=== PATIENT | male | born 1940 | race Caucasian/White ===

== ENCOUNTER 2018-02-03 07:36 | Day surgery (SDC) | payer MEDICARE ==
[2018-02-01 09:55] VITALS: BMI 33.0
[~2018-02-03 07:36] MED LIST: LACTATED RINGERS 1,000 ML IV SCH; LIDOCAINE 1% 20 ML VIAL (10MG/ML) FOR IV START INTRADERMA PRN
[2018-02-03 07:59] VITALS: RESP 18; TEMP 98
[2018-02-03] MEDS ORDERED: LACTATED RINGERS 1,000 ML IV ONE (08:00)
[2018-02-03 08:07] LABS: Glucose,Whole Blood 161 mg/dL (75-99)
[2018-02-03] MEDS ORDERED: LIDOCAINE 1% INJ 10MG/ML (20 ML MDV) ONE (08:35)
[2018-02-03] MEDS ORDERED: PROPOFOL 10 MG/ML 20 ML VIAL IV ONE (08:35)
--- NOTE | 2018-02-03 08:58 | P.PCN ---
Date of Procedure: 02/03/18 Procedure(s) Performed: BRIEF HISTORY: Patient is a 77-year-old pleasant white male, scheduled for an elective colonoscopy as a part of evaluation of prior history of colon polyps. His last endoscopy was 5 years ago. PROCEDURE PERFORMED: Colonoscopy with snare polypectomy. PREOPERATIVE DIAGNOSIS: History of colon polyps. IV sedation per Anesthesia. PROCEDURE: After informed consent was obtained, the patient, was brought into the endoscopy unit. IV sedation was administered by Anesthesia under continuous monitoring. Digital rectal examination was normal. Initially the Olympus CF- 160 flexible video colonoscope was then inserted in the rectum, gradually advanced into the cecum without any difficulty. Careful examination was performed as the scope was gradually being withdrawn. Ileocecal valve and the appendiceal orifice were visualized and appeared normal. Prep was excellent. In the base of the cecum there were 5 polyps measuring between 3 mm to 1 mL in size all of which were sessile and removed by snare polypectomy. In the ascending colon there were 2 polyps measuring 5 mm and sessile removed by snare polypectomy. In the transverse colon there was a 1 segment of broad-based polyp removed by snare polypectomy. In the sigmoid colon there was another 1 cm broad-based polyp removed by snare polypectomy. Moderate left-sided diverticulosis seen. Rectum appeared normal.. Retroflexion was performed in the rectum and no lesions were seen. The patient tolerated the procedure well. IMPRESSION: 1. 5 polyps in the cecum measuring between 3 mm to 1 cm polyp which was sessile removed by snare polypectomy 2. 5 mm 2 sessile ascending colon polyp status post polypectomy 3. 1 cm broad-based transverse colon polyp status post polypectomy 4. 1 cm broad-based sigmoid colon polyp status post polypectomy 5. Moderate sigmoid diverticulosis RECOMMENDATIONS: Findings of this examination were discussed with the patient as well as his family. He was advised to follow with the biopsy results. If the biopsy shows a tubular adenoma he can have a repeat colonoscopy in 3 years.
[2018-02-03 09:12] LABS: Glucose,Whole Blood 159 mg/dL (75-99)
[2018-02-03 09:21] VITALS: BP 158/93; PULSE 65
== END 2018-02-03 09:41 | disposition home or self-care (01) ==
LOC: ORWHC2ENDO 07:36
PROVIDERS: ATTEND Internal Medicine Gastroenterology
DX: Z12.11 Encounter for screening for malignant neoplasm of colon (principal); K57.30 Diverticulosis of large intestine without perforation or abscess without bleeding; D12.0 Benign neoplasm of cecum; D12.2 Benign neoplasm of ascending colon; D12.3 Benign neoplasm of transverse colon; Z86.010 Personal history of colon polyps; I10 Essential (primary) hypertension; Z85.820 Personal history of malignant melanoma of skin; Z87.891 Personal history of nicotine dependence; E11.9 Type 2 diabetes mellitus without complications; Z79.4 Long term (current) use of insulin; Z79.82 Long term (current) use of aspirin; Z79.899 Other long term (current) drug therapy
CPT/HCPCS: 88305; 45385; J2001; J2704